=== PATIENT | male | born 1985 | race American Indian/Alaskan Native ===

== ENCOUNTER 2021-03-05 20:34 | Observation (INO) | payer SELFPAY ==
[2021-03-05] MEDS ORDERED: ONDANSETRON 4 MG ODT TAB PO ONE (23:25)
--- NOTE | 2021-03-05 23:27 | Emergency Department Report ---
ED General Adult HPI - General Chief complaint: Nausea/Vomiting/Diarrhea Stated complaint: UNABLE TO KEEP FOOD DOWN Time Seen by Provider: 03/05/21 23:18 Source: patient Mode of arrival: Ambulatory Limitations: No Limitations - History of Present Illness Initial comments: 35-year-old male patient with history of HIV presents to the emergency department with complaints of nausea, vomiting, and dark urine starting yesterday. Patient states he vomits every time he tries to eat. Patient endorses 4 episodes of nonbloody emesis today. No known sick contacts. No current steroid or antibiotic use. No recent travel. Patient is on antiretroviral therapy but is unsure of his last CD4 count. No known history of renal problems. Denies fever, chills, abdominal pain, pelvic pain, testicular pain/swelling, diarrhea, constipation. Denies all other complaints at this time. - Related Data Allergies Allergy/AdvReac Type Severity Reaction Status Date / Time No Known Allergies Allergy Unverified 03/05/21 21:48 ED Review of Systems ROS: Stated complaint: UNABLE TO KEEP FOOD DOWN Other details as noted in HPI Other: GENERAL: Negative for fever, chills, weight change, anorexia, fatigue. ENT: Negative for ear pain, difficulty hearing, sore throat, nasal congestion, epistaxis. CARDIOVASCULAR: Negative for chest pain, palpitations, lower extremity swelling. PULMONARY: Negative for cough, dyspnea, wheezing, orthopnea, cyanosis. GASTROINTESTINAL: Positive for nausea and vomiting. GENITOURINARY: Positive for dark urine. MUSCULOSKELETAL: Negative for joint pain, joint swelling, myalgias, back pain, neck pain. NEUROLOGICAL: Negative for headache, seizure, syncope, paresthesias, weakness. INTEGUMENTARY: Negative for erythema, rash, diaphoresis, laceration, ecchymosis. HEMATOLOGICAL: Negative for hemoptysis, hematemesis, hematochezia, hematuria. PSYCHIATRIC: Negative for hallucinations, suicidal ideation, homicidal ideation, anxiety, depression. ED Past Medical Hx - Past Medical History Previous Medical History?: Yes Hx HIV: Yes - Surgical History Past Surgical History?: No - Social History Smoking Status: Current Every Day Smoker Substance Use Type: None ED Physical Exam - General Limitations: No Limitations - Other Other exam information: General: Awake and alert. No acute distress. Head: Atraumatic, normocephalic. Eyes: EOMI. Pupils are equal and round. Normal sclera and conjunctiva. ENT: Oral mucosa is moist. Normal pharyngeal exam. Neck: Supple. No lymphadenopathy. Pulmonary: No respiratory distress. Clear to auscultation bilaterally. Cardiac: Regular rate and rhythm. Pulses are palpable and equal bilaterally. No lower extremity cyanosis or edema. Skin: Warm and dry. No rashes. Abdomen: Soft, non-tender, non-protuberant. No guarding, rigidity, or rebound. Bowel sounds are normal. No organomegaly or masses noted. McBurney's point is nontender. Cordova sign is negative. Back: Normal alignment. No CVA tenderness. Extremities: Symmetrical. Full range of motion intact. Neurological: Alert and oriented, appropriately interactive, no focal deficits. Psych: Cooperative. Appropriate mood and affect. Speech is evenly metered. Thoughts are logically construed. ED Course Vital Signs 03/05/21 03/06/21 21:42 03:40 Temperature 99.1 F Pulse Rate 68 66 Respiratory 18 18 Rate Blood Pressure 106/60 Blood Pressure 113/53 [Left] O2 Sat by Pulse 99 100 Oximetry ED Medical Decision Making - Lab Data Result diagrams: 03/05/21 23:28 03/05/21 23:28 - Radiology Data [facility] [address] [place] [address] Ultrasound Report Signed Patient: CHARLOTTE STRINGER MR#: [id number] : 1985 A cct:[id number] Age/Sex: 35 / M ADM Date: 03/05/21 Loc: ED Attending Dr: Ordering Physician: DEANDRA RILEY Date of Service: 03/06/21 Procedure(s): US abdomen complete Accession Number(s): [id number] cc: DEANDRA RILEY ULTRASOUND ABDOMEN, COMPLETE INDICATION / CLINICAL INFORMATION: hx HIV, vomiting, hyperbilirubinemia, leukopenia. COMPARISON: None available. FINDINGS: PANCREAS: Visualized portions of the pancreas are within normal limits. ABDOMINAL AORTA: No significant abnormality. IVC: No significant abnormality. LIVER: The liver demonstrates a normal echogenicity and morphology. PORTAL VEIN: Normal hepatopedal blood flow in the main portal vein. GALLBLADDER: Stones and/or sludge in the gallbladder. There is extensive irreg ular gallbladder wall thickening, measuring 6 mm. BILE DUCTS: Common bile duct measures 3 mm. No significant abnormality. KIDNEYS: Bilateral renal cysts. No acute findings. SPLEEN: No significant abnormality. FREE FLUID: None. ADDITIONAL FINDINGS: None. IMPRESSION: Stones and/or sludge in the gallbladder with extensive irregular gallbladder wall thickening, concerning for acute cholecystitis. Signer Name: Nancy Garcia MD Signed: 03/06/2021 1:45 AM Workstation Name: [id number] Transcribed By: NIURKA Dictated By: NANCY GARCIA MD Electronically Authenticated By: NANCY GARCIA MD Signed Date/Time: 03/06/21144 DD/ 2 TD/TT: - Medical Decision Making Differential diagnosis including but not limited to: dehydration, electrode abnormality, hypoglycemia, rhabdomyolysis, urinary tract infection, acute kidney injury Patient with history of immunosuppression due to HIV presents to the emergency department with complaints of nausea, vomiting, and urine discoloration. He is afebrile, hemodynamically stable, without signs of peritonitis. Urinalysis with positive ictotest prompting further diagnostic work-up. Labs showed leukopenia, transaminitis, hyperbilirubinemia, and positive titers for hepatitis A. Ultrasound findings concerning for acute cholecystitis. Case discussed with Dr. Reagan, general surgeon, who agrees to evaluate patient in the morning and requested admission to hospitalist service. Patient will be kept n.p.o. and started on IV Zosyn. Case discussed with hospitalist, who agrees to admit. Patient expressed understanding and is agreeable to plan of care. Critical care attestation.: If time is entered above; I have spent that time in minutes in the direct care of this critically ill patient, excluding procedure time. ED Disposition Clinical Impression: Acute cholecystitis, Transaminitis, Hyperbilirubinemia, History of HIV infection Disposition: OP ADMIT IP TO THIS HOSP Is pt being admited?: Yes Does the pt Need Aspirin: No Condition: Serious Time of Disposition: 02:04
[2021-03-05 23:54] LABS: Hematocrit 40.8 % (35.5-45.6); Hemoglobin 13.6 gm/dl (11.8-15.2); Mean Corpuscular HGB Conc 33 % (32-34); Mean Corpuscular Volume 88 fl (84-94); Platelet Count 190 K/mm3 (140-440); Red Blood Count 4.64 M/mm3 (3.65-5.03); Red Cell Distribution Width 14.8 % (13.2-15.2)
[2021-03-06 00:02] LABS: BUN/Creatinine Ratio 11; Blood Urea Nitrogen 12 mg/dL (9-20); Calcium 8.7 mg/dL (8.4-10.2); Hemolysis Index 2
[2021-03-06] MEDS ORDERED: SODIUM CHLORIDE 0.9% 1000 ML 1,000 ML IV ONE (00:11)
[2021-03-06 00:27] LABS: Alanine Aminotransferase 3389 units/L (7-56)
[2021-03-06 00:30] LABS: Bacteria,Urine 1+ /HPF (Negative); Bilirubin,Urine MOD (Negative); Blood,Urine NEG (Negative); Color,Urine Amber (Yellow); Mucus,Urine 2+ /HPF
[2021-03-06 01:06] LABS: Ictotest,Urine Positive (Negative)
[2021-03-06 01:34] LABS: INR 1.25 (0.87-1.13)
[2021-03-06 01:35] LABS: Partial Thromboplastin Time 33.7 Sec. (24.2-36.6)
--- NOTE | 2021-03-06 01:49 | Ultrasound Report ---
ULTRASOUND ABDOMEN, COMPLETE INDICATION / CLINICAL INFORMATION: hx HIV, vomiting, hyperbilirubinemia, leukopenia. COMPARISON: None available. FINDINGS: PANCREAS: Visualized portions of the pancreas are within normal limits. ABDOMINAL AORTA: No significant abnormality. IVC: No significant abnormality. LIVER: The liver demonstrates a normal echogenicity and morphology. PORTAL VEIN: Normal hepatopedal blood flow in the main portal vein. GALLBLADDER: Stones and/or sludge in the gallbladder. There is extensive irregular gallbladder wall t hickening, measuring 6 mm. BILE DUCTS: Common bile duct measures 3 mm. No significant abnormality. KIDNEYS: Bilateral renal cysts. No acute findings. SPLEEN: No significant abnormality. FREE FLUID: None. ADDITIONAL FINDINGS: None. IMPRESSION: Stones and/or sludge in the gallbladder with extensive irregular gallbladder wall thickening, concern ing for acute cholecystitis. Signer Name: Adam Garcia MD Signed: 03/06/2021 1:45 AM Workstation Name: [id number]
[2021-03-06 01:52] LABS: Total Cells Counted 100
[2021-03-06 01:53] LABS: Anisocytosis 1+; Platelet Estimate Consistent w Auto
[2021-03-06] MEDS ORDERED: PIPERACIL/TAZOBACTA 4.5/NS 100 4.5 GM/100 ML VIAL IV ONE (01:57)
--- NOTE | 2021-03-06 02:32 | History and Physical Report ---
History of Present Illness Date of examination: 03/05/21 Date of admission: 03/05/21 Chief complaint: nausea and vomiting History of present illness: 35-year-old male patient with history of HIV presents to the emergency department with complaints of nausea, vomiting, and dark urine starting yesterday. Patient states he vomits every time he tries to eat. Patient endorses 4 episodes of nonbloody emesis today. No known sick contacts. No current steroid or antibiotic use. No recent travel. Patient is on antiretroviral therapy but is unsure of his last CD4 count. No known history of renal problems. Denies fever, chills, abdominal pain, pelvic pain, testicular pain/swelling, diarrhea, constipation. Denies all other complaints at this time. CT of the abdomen showed stone/enlarged and the gallbladder with extensive irregular gallbladder wall thickening concerning for acute cholecystitis. Patient seen in the ED at bedside. Patient alert oriented x3. Patient reports he came in due to abdominal pain but abdominal pain has improved at the time of assessment. General surgery was consulted. Will start patient on IV hydration keep n.p.o. Past History Social history: lives with family, smoking Medications and Allergies Allergies Allergy/AdvReac Type Severity Reaction Status Date / Time No Known Allergies Allergy Unverified 03/05/21 21:48 Review of Systems Ears, nose, mouth and throat: no epistaxis Cardiovascular: no chest pain Gastrointestinal: abdominal pain, nausea Rectal: no itching, no hemorrhoids Integumentary: no rash, no pruritis Neurological: no confusion Psychiatric: anxiety Hematologic/Lymphatic: no easy bruising, no easy bleeding Allergic/Immunologic: no urticaria, no allergic rhinitis, no wheezing Exam - Constitutional Vitals: Temp Pulse Resp BP Pulse Ox 99.1 F 68 18 106/60 99 03/05/21 21:42 03/05/21 21:42 03/05/21 21:42 03/05/21 21:42 03/05/21 21:42 General appearance: Present: no acute distress, well-nourished - EENT Eyes: Present: PERRL ENT: hearing intact, clear oral mucosa - Neck Neck: Present: supple, normal ROM - Respiratory Respiratory effort: normal Respiratory: bilateral: CTA - Cardiovascular Heart Sounds: Present: S1 & S2. Absent: rub, click - Extremities Extremities: pulses symmetrical, No edema Peripheral Pulses: within normal limits - Abdominal General gastrointestinal: Present: soft, non-tender, non-distended, normal bowel sounds Male genitourinary: Present: normal - Integumentary Integumentary: Present: clear, warm, dry - Musculoskeletal Musculoskeletal: gait normal, strength equal bilaterally - Psychiatric Psychiatric: appropriate mood/affect, intact judgment & insight - Neurologic Neurologic: CNII-XII intact, moves all extremities - Allied Health Allied health notes reviewed: nursing Results - Labs CBC & Chem 7: 03/05/21 23:28 03/05/21 23:28 Labs: Abnormal lab results 03/05/21 03/05/21 03/06/21 Range/Units 23:28 23:28 00:55 WBC 2.9 L (4.5-11.0) K/mm3 Lymphocytes % (Manual) 38.0 H (13.4-35.0) % Monocytes % (Manual) 13.0 H (0.0-7.3) % Seg Neutrophils # Man 1.4 L (1.8-7.7) K/mm3 Lymphocytes # (Manual) 1.1 L (1.2-5.4) K/mm3 PT 16.2 H (12.2-14.9) Sec. INR 1.25 H (0.87-1.13) Sodium 135 L (137-145) mmol/L Chloride 96.6 L (98-107) mmol/L Total Bilirubin 5.50 H (0.1-1.2) mg/dL AST 2618 H (5-40) units/L ALT 3389 H (7-56) units/L Alkaline Phosphatase 195 H (35-129) units/L Total Creatine Kinase 296 H (55-170) units/L Assessment and Plan - Patient Problems (1) Acute cholecystitis Current Visit: Yes Status: Acute Plan to address problem: Continue pain management and antiemetic CT of the abdomen and pelvicspositive cholecystitis Monitor liver enzymes (2) Hyperbilirubinemia Current Visit: Yes Status: Acute Plan to address problem: Likely secondary to gallbladder stone Continue IV hydration (3) Transaminitis Current Visit: Yes Status: Acute Plan to address problem: IV hydration Monitor liver enzymes (4) History of HIV infection Current Visit: Yes Status: Acute Plan to address problem: Patient reported he is compliant with antiviral Discussed importance of medication compliance (5) DVT prophylaxis Current Visit: Yes Status: Acute Plan to address problem: SCD/hold ant coagulant-possible surgery
[2021-03-06] MEDS ORDERED: SENNOSIDES 8.6 MG TAB PO PRN (03:20)
[2021-03-06] MEDS ORDERED: ACETAMINOPHEN 325 MG TAB PO PRN ×4 (03:20→05:43)
[2021-03-06] MEDS ORDERED: ONDANSETRON 4 MG/2 ML INJ IV PRN ×4 (03:20→05:43)
[2021-03-06 03:31] LABS: Hepatitis B Surface Antigen Non-Reactive (Negative); Hepatitis C Virus Antibody Non-Reactive (NonReactive)
[2021-03-06] MEDS: SODIUM CHLORIDE 0.9% 1000 ML 1,000 ML IV SCH ×2 (05:15→16:46)
[2021-03-06] MEDS ORDERED: METOCLOPRAMIDE 10 MG/2 ML INJ IV PRN (05:33)
[2021-03-06] MEDS ORDERED: MAGNESIUM HYDROXIDE (MOM) ORAL LIQD UDC PO PRN (05:33)
[2021-03-06 17:49] VITALS: BP 103/56
--- NOTE | 2021-03-06 19:38 | Discharge Summary ---
Providers - Providers Date of Admission: 03/06/21 05:43 Date of discharge: 03/06/21 Attending physician: SARAH INFANTE 03/06/21 11:36 Consult to Physician [CONS] Routine Comment: Consulting Provider: KENDAL REID Physician Instructions: Reason For Exam: cholecystitis Primary care physician: [facility] Hospitalization Condition: Serious Hospital course: 35-year-old male patient with history of HIV presents to the emergency department with complaints of nausea, vomiting, and dark urine starting yesterday. Patient is on antiretroviral therapy but is unsure of his last CD4 count. CT of the abdomen showed stone/enlarged and the gallbladder with extensive irregular gallbladder wall thickening concerning for acute cholecystitis. Patient reports he came in due to abdominal pain but abdominal pain has improved at the time of assessment. General surgery was consulted. Patient was started on IV fluid and kept n.p.o. following admission after few hours patient started to feel better and he decided to leave AMA without being seen by general surgeon. Disposition: DC-07 LEFT AGAINST MED ADVICE Final Discharge Diagnosis (Prints w/discharge instructions): Possible acute cholecystitis. Hyperbilirubinemia. Transaminitis. History of HIV infection Time spent for discharge: 34 minutes Core Measure Documentation - Palliative Care Palliative Care/ Comfort Measures: Not Applicable - Core Measures Any of the following diagnoses?: none Exam - Constitutional Vitals: Temp Pulse Resp BP Pulse Ox 98.1 F 63 18 103/56 100 03/06/21 17:35 03/06/21 17:35 03/06/21 17:35 03/06/21 17:35 03/06/21 17:35 Plan Follow up with: CHELE VAUGHN MD [Primary Care Provider] - 3-5 Days Forms: AMA Form
== END 2021-03-06 17:55 | disposition left against medical advice (07) ==
LOC: ED 20:34 → 3A 03-06 05:43
PROVIDERS: ADMIT Internal Medicine Geriatric Medicine; ATTEND Internal Medicine
DX: K81.0 Acute cholecystitis (principal); R74.01 Elevation of levels of liver transaminase levels; E80.6 Other disorders of bilirubin metabolism; Z21 Asymptomatic human immunodeficiency virus [HIV] infection status
CPT/HCPCS: 36415; 76700; 80053; 80074; 81001; 82140; 82550; 83690; 83735; 85025; 85610; 85730; 96361; 96365; 99284; G0378; J2543; J7030; 80320; 85007; G0480; Q0162